=== PATIENT | male | born 1980 | race Caucasian/White ===

== ENCOUNTER 2018-11-17 01:51 | Emergency (ER) | payer BC, OTHER ==
[~2018-11-17] VITALS: Ht 170.2 cm; Wt 74.3 kg
[~2018-11-17 01:51] MED LIST: HYDR-4011 PO; IBUP-1542 PO; ONDA4TAB14 PO; TAMS-14 PO
[2018-11-17 02:12] VITALS: Ht 170.2 cm; Wt 74.3 kg
[2018-11-17] MEDS ORDERED: KETOROLAC 30 MG INJ IV STA (03:29)
[2018-11-17] MEDS ORDERED: FAMOTIDINE 20 MG INJ IV STA (03:29)
[2018-11-17] MEDS ORDERED: ONDANSETRON 4 MG INJ IV STA (03:29)
[2018-11-17] MEDS ORDERED: SOD CHLORIDE 0.9% 1,000 ML IV ONE (04:30)
[2018-11-17] MEDS ORDERED: SOD CHLORIDE 0.9% 100 ML ONE (04:38)
[2018-11-17] MEDS ORDERED: IOHEXOL 300MG/ML 150 ML BTL ONE (04:38)
[2018-11-17] MEDS ORDERED: POTASSIUM CHLORIDE (SR) 20 MEQ TAB PO ONE (05:55)
[2018-11-17 06:30] VITALS: BP 121/80; PULSE 78; RESP 18
== END 2018-11-17 06:32 | disposition home or self-care (01) ==
LOC: FTE 01:51
DX: R10.30 Lower abdominal pain, unspecified (principal)
CPT/HCPCS: 36415; 74177; 80053; 81001; 83690; 85025; 96361; 96374; 96375; 99285; J1885; J2405; J7030; Q9967